=== PATIENT | male | born 1965 | race Caucasian/White ===

== ENCOUNTER 2019-12-09 14:38 | Emergency (ER) | payer OTHER ==
[~2019-12-09] VITALS: Ht 190.5 cm; Wt 89.1 kg
[2019-12-09 15:14] VITALS: BP 137/97
[2019-12-09] MEDS ORDERED: LIDOCAINE-MPF 1%, 5ML ONE (15:23)
[2019-12-09] MEDS ORDERED: LIDOCAINE 1%-EPI 1:100K, 20ML INFIL ONE (15:30)
[2019-12-09] MEDS ORDERED: PLEASE ENTER ALLERGIES MC SCH (15:30)
--- NOTE | 2019-12-09 16:15 | NUR ---
PA AT BEDSIDE PLACING SUTURES NOW.
[2019-12-09] MEDS ORDERED: HYDROcodone/APAP 5/325 TABLET ONE (16:19)
[2019-12-09] MEDS ORDERED: NEOSPORIN OINT. PKT 1 PACKET ONE (16:22)
[2019-12-09] MEDS ORDERED: HYDROcodone/APAP 5/325 TABLET PO ONE (16:30)
== END 2019-12-09 16:52 | disposition home or self-care (01) ==
LOC: ED 16:35
DX: S61.512A Laceration without foreign body of left wrist, initial encounter (principal); W26.9XXA Contact with unspecified sharp object(s), initial encounter; Y93.89 Activity, other specified; Y92.69 Other specified industrial and construction area as the place of occurrence of the external cause; Y99.8 Other external cause status
CPT/HCPCS: 12042; 99284